=== PATIENT | male | born 1940 | race Caucasian/White ===

== ENCOUNTER 2016-04-14 22:24 | Observation (INO) | payer OTHER, MEDICARE ==
[~2016-04-14] VITALS: Ht 175.3 cm; Wt 61.0 kg
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
[2016-04-14 22:48] LABS: BILIRUBIN URINE NEGATIVE (NEGATIVE); BLOOD URINE NEGATIVE /UL (NEGATIVE); COLOR URINE YELLOW (YELLOW); GLUCOSE URINE NEGATIVE (NEGATIVE); KETONE URINE NEGATIVE (NEGATIVE); LEUKOCYTES URINE NEGATIVE /UL (NEGATIVE); NITRITE URINE NEGATIVE (NEGATIVE); PROTEIN URINE NEGATIVE (NEGATIVE); TURBIDITY URINE 1+ (CLEAR); UROBILINOGEN URINE NORMAL (NORMAL)
[2016-04-14 22:51] LABS: HEMOGLOBIN 13.6 g/dL (11.0-16.0); MCH 34.7 pg (27.0-34.0); PLATELET COUNT 129 K/uL (150-450); RBC 3.92 M/uL (3.50-5.50); RDW-CV 13.8 % (11.9-14.6); WBC 9.9 K/uL (4.0-11.0)
[2016-04-14 23:10] LABS: ALBUMIN 3.4 gm/dL (3.5-5.0); ANION GAP 15.1 (10.0-19.0); CALCIUM 8.1 mg/dL (8.5-10.5); CREATININE 1.3 mg/dL (0.6-1.3); POTASSIUM 4.1 mMol/L (3.7-5.1); TOTAL BILIRUBIN 0.8 mg/dL (0.0-1.5)
[2016-04-14 23:16] LABS: AMORPHOUS URINE 2+ (NEGATIVE); BACTERIA URINE NEGATIVE (NEGATIVE); EPITHELIAL URINE RARE #/HPF (NEGATIVE); RBC URINE NEGATIVE #/HPF (NEGATIVE); WBC URINE 0-2 #/HPF (NEGATIVE)
[2016-04-14 23:41] LABS: BANDED NEUTROPHIL # 1.3 K/uL (0.0-0.1); BANDED NEUTROPHILS % 13 %; LYMPHOCYTE # 0.5 K/uL (0.8-4.0); LYMPHOCYTE % 5 %; MONOCYTE # 0.3 K/uL (0.0-1.0); SEGMENTED NEUTROPHIL # 7.7 K/uL (1.4-9.0); SEGMENTED NEUTROPHIL % 78 %
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
--- NOTE | 2016-04-15 12:00 | NUR ---
Introduced self and role of care management to patient. Patient lives alone in [place]. Patient is observation status and talked to him about that. Patient does not use a cane or walker at baseline. Talked with patient about discharge plans. He hopes his brother and NADIA in [place] will ask him to stay with them for a few days when he is discharged. Encouraged him to ask them if he can stay when they call him. He says his brother was going to go get his things out of the vehicle. Asked if he has good friends or family in [place] that can check on him. He says his brother and his family are in [place] and he doesn't have any close friends in [place]. Plan at this time is for patient to either go home or stay with his brother in [place]. Will follow.
[2016-04-15] MEDS ORDERED: EXELON1 EACH TRANS (14:19)
[2016-04-15] MEDS ORDERED: METHOTREXATE2.5 MG PO (14:20)
[2016-04-15] MEDS ORDERED: VESICARE10 MG PO (14:20)
[2016-04-15] MEDS ORDERED: PLAQUENIL200 MG PO (14:21)
[2016-04-15] MEDS ORDERED: FLOMAX0.4 MG PO ×2 (14:21→14:42)
[2016-04-15] MEDS ORDERED: ZANTAC150 MG PO (14:43)
[2016-04-15] MEDS ORDERED: THERAGRAN-M1 TAB PO (14:43)
[2016-04-15] MEDS ORDERED: CALCIUM 500 +1 EACH PO (14:44)
[2016-04-15] MEDS ORDERED: ASPIRIN LO-DOSE81 MG PO (14:44)
[2016-04-15] MEDS ORDERED: FOLIC ACID1 MG PO (14:45)
--- NOTE | 2016-04-15 14:45 | NUR ---
Call from PT regarding patient would benefit from FWW and that Dr. Gauthier had mentioned SB to patient. Told her will come and talk with patient as he will not qualify for SB. Talked with patient about options for care/assistance after discharge. Explained to him [facility] does not have a SB, but does have 3 SNFs. Told him he does not meet qualifications for medicare to pay for skilled care and he would be self pay. He asks about other options. Told him [facility] would be another option but would be self pay there also. He says he could probably pay for SNF or [facility], but also thinks he may just need to stay with his brother. He thinks his brother tried to call but he could not get to the phone. He says he will call and talk to his brother. He says he doesn't feel like he can go home and be alone. He will ask brother for his opinion regarding staying with them, SNF or [facility]. Gave him my number to share with his brother if brother has questions. Talked with him about a walker. He says he has a walker at home in storage. He says it is one his parents and brother have used. Asked him to have his brother check and see if they have the walker and it is usable. Told him if brother wants him to go to [facility] or SNF, I can assist with calls and arrangements, but he will be self pay. He voices understanding. Will follow.
[2016-04-15] MEDS ORDERED: VITAMIN B-121000 MCG PO (14:46)
--- NOTE | 2016-04-15 17:28 | NUR ---
Significant Event: Patient AOx3. Patient ambulated to chair this AM and in the hallway with PT with 1A, gait belt, walker. Patient states pain from breathing deeply and ambulating has gotten better throughout the day. [place] given at 0805 and 1218 with relief noted. Right AC IV is saline locked. Patient refused shower. Edema to lower extremities. PERRLA. Moderate strength in all extremities. Bowel sounds active, but no BM since Thursday. Afebrile. VSS. Lungs clear and diminished on room air. Regular diet. Urinary frequency has decreased, voided three times this shift with adequate output. Possible discharge tomorrow.
--- NOTE | 2016-04-16 04:58 | NUR ---
Significant Event: Patient is alert and oriented x 3. Forgetful at times. Denies numbness or tingling. C/O chest pain with deep breaths at times-also worse with movement. Moves spontaneously and follows commands. PERRL. Moderate and equal strength. VSS. Afebrile. Edema to BLE. On room air. Lungs clear and diminished. Pain controlled with [place] PRN. IV to right AC SL with no complications. Voids per restroom without difficulties. Bowel sounds active-no BM this shift. Regular diet. Uses call light appropriately. Follow up: possible discharge to [facility], [facility], or home with family assistance and home health, papin management
--- NOTE | 2016-04-16 12:36 | NUR ---
Call from nursing staff this a.m. that patient wanted to talk to me. Went to talk with patient and Lynette FISH was rounding and we talked with him together about discharge plans. Patient talked to his brother last night but says he didn't ask if he could stay with them and brother did say he could stay with him. Patient says he realized during the night that he does need help and probably can't manage at home. Talked with him again about options of skilled care and assisted living. Told him neither will be covered by medicare and he would be private pay at either. Told him I thought he was most appropriate for assisted living. He asks about lifting, mowing the grass and driving. Lynette talked with him about his restrictions. Asked him what he was thinking in terms of discharge plans and he keeps asking if he can stay another day. Told him that is up to his doctor but we need to have a discharge plan in place. He says his brother will pick him up when he is discharged and they will talk about his plans in the car on the way back to [place]. Asked him if he asked his brother about the walker. He says the walker is in a shed at his house and he is thinking maybe he should just get a walker. Asked him if I could call and talk with his brother regarding discharge plans. He says I can call his brother and he gives me his phone number. Called and spoke with his brother Meghan on the phone. He says he wondered if Rian was thinking of staying with them. He says they can probably make that work for a few days. Talked to him about skilled care and assisted living. Told him patient would be private pay at either. Talked about how patient is doing at [place]. He says Rian has been doing OK and not anymore unsteady than any of them are at their age. He says Rian is an introvert. He does come to the [facility] on a regular basis for his noon meal. He says he will talk to his and his son and Rian will be able to stay with them for awhile. He asks about restrictions and I tell him what Lynette told patient. He says not being able to drive will present a challenge but he understands the need for the restriction. He says they will probably take Rian to visit ALFs and apartments when he is at their house and find somewhere for him to stay for a couple of months. He says he is not certain about Rian's finances as he does not share that with him. He says he will try to get that information from Rian so they can find an appropriate place for him in [place] for a few months. Asked him about the walker. He says the walker in the shed at [place] was their Dad's and it is a standard walker. He says he has a FWW at his home in the shed that he used last year and the can get it out for Rian to use. He asks if patient will be dismissed today. Told him the doctor is to round early afternoon and we will know then if it is today or tomorrow. He says they will be able to pick him up and will plan on him staying with them for a few days. He says he will call Rian after 1300 to see if doctor has rounded. Will follow.
--- NOTE | 2016-04-16 13:18 | NUR ---
Significant Event: VSS. PATIENT A/O X 3, FORGETFUL. FOLLOWS COMMANDS. MODERATE AND EQUAL STRENGTH. DENIES NUMBNESS/TINGLING. 2-3+ EDEMA NOTED TO LOWER EXTREMITIES. LUNGS CLEAR AND DIM ON ROOM AIR. BOWELS ACTIVE, DID GIVEN PRUNE JUICE TODAY HASNT HAD BM SINCE THURSDAY. DENIES PAIN UNLESS HE REALLY WORKS HARD THEN SOME STERNAL DISCOMFORT. TYLENOL GIVEN THIS AM AT 0950 AND HAS DENIED NEED FOR PAIN MEDS SINCE. IV IN RT A/C SALINE LOCKED. UP WITH STANDBY ASSIST AND WALKER. EATING WELL. AWAITING FOR DR KOCH TO ROUND. PLAN TO GO HOME TODAY PROBABLY WITH BROTHER. STATES HAS A WALKER AT HOME. Follow up: HOME TODAY?[facility].
[2016-04-16] MEDS ORDERED: SENOKOT8.6 MG PO (15:01)
[2016-04-16] MEDS ORDERED: NORCO 5-325 TA1 EACH PO (15:06)
--- NOTE | 2016-04-16 15:31 | NUR ---
Notified Dr. Gauthier here and discharged patient. Nurse asked me to come talk to patient as he seems uncertain about discharge plans. Went and talked to patient and assured him his brother said he could stay with him, while they decided if he needs [facility] or apartment. Patient says he thinks he needs to consider [facility] until he can drive again. He is glad he can stay with his brother for a few days and talk about his plans. Helped patient call his brother to let him know he is discharged. Patient got emotional and unable to talk to his brother. Talked with his brother and updated him. He says he and his decided Rian can stay with them for awhile and they will figure out a plan for him. He is glad Rian has mentioned [facility]. He says he and his son will be here about 1700 to pick patient up. Patient to discharge home with brother today.
--- NOTE | 2016-04-16 19:18 | NUR ---
Significant Event: patient discharged to home. Left [facility] at 1755 per w/c accompanied by transport staff and brother. to be driven home per private vehicle by brother.
== END 2016-04-16 17:53 | disposition disaster alternative care site (69) ==
LOC: GACC 22:24 → GNTU 04-15 00:28
PROVIDERS: Emergency Medicine; ADMIT Surgery
DX: S22.22XA Fracture of body of sternum, initial encounter for closed fracture (principal); S12.200A Unspecified displaced fracture of third cervical vertebra, initial encounter for closed fracture; S12.300A Unspecified displaced fracture of fourth cervical vertebra, initial encounter for closed fracture; S12.400A Unspecified displaced fracture of fifth cervical vertebra, initial encounter for closed fracture; S12.500A Unspecified displaced fracture of sixth cervical vertebra, initial encounter for closed fracture; V48.5XXA Car driver injured in noncollision transport accident in traffic accident, initial encounter; J44.9 Chronic obstructive pulmonary disease, unspecified; M06.9 Rheumatoid arthritis, unspecified; K21.9 Gastro-esophageal reflux disease without esophagitis; N40.0 Benign prostatic hyperplasia without lower urinary tract symptoms; Z79.899 Other long term (current) drug therapy
CPT/HCPCS: G0378; G8978; G8979; G8980; G8987; G8988; G8989